=== PATIENT | female | born 1980 | race African-American/Black ===

== ENCOUNTER 2018-02-24 15:43 | Emergency (ER) | payer OTHER ==
[~2018-02-24] VITALS: Ht 160 cm; Wt 86.4 kg
[~2018-02-24 15:43] MED LIST: FLEXERIL 1010 MG/TAB PO; ZOFRAN ODT4 MG PO
[2018-02-24 15:48] VITALS: BP 134/83; PULSE 80; TEMP 98.3
== END 2018-02-24 16:26 | disposition home or self-care (01) ==
LOC: COL.ER 15:43
DX: L29.0 Pruritus ani (principal); F17.210 Nicotine dependence, cigarettes, uncomplicated